=== PATIENT | female | born 1965 | race Caucasian/White ===

== ENCOUNTER 2025-03-31 19:34 | Emergency (ER) | payer OTHER ==
[~2025-03-31] VITALS: Ht 152.4 cm; Wt 75.0 kg
[2025-03-31 19:56] VITALS: BP 128/74; PULSE 72; RESP 18; TEMP 97.9; O2SAT 99
[2025-03-31] MEDS: ACETAMINOPHEN 500 MG TABLET PO ONE (21:38)
== END 2025-03-31 23:15 | disposition home or self-care (01) ==
LOC: EMS 19:34
DX: M25.532 Pain in left wrist (principal); W19.XXXA Unspecified fall, initial encounter; Y93.89 Activity, other specified; Y92.89 Other specified places as the place of occurrence of the external cause; Y99.8 Other external cause status
CPT/HCPCS: 99284; 73090-TC; 73110-TC; Z7502; Z7610